=== PATIENT | female | born 1985 | race Caucasian/White ===

== ENCOUNTER → 2018-09-13 16:03 | Outpatient (CLI) | payer BC, SELFPAY ==
[2018-09-18 10:05] LABS: HPV Reflexed? NOT INDICATED
--- OUTSIDE RECORDS SUMMARY | 2018-11-08 22:23 | XMS RPT_ITS ---
:1985 Author Organization [facility] Care Team Providers Name Role Phone Heriberto Sanchez Attending Unavailable PROBLEMS PROBLEMS No Problem Records FoundPROCEDURES PROCEDURES No Procedure Records FoundRESULTS RESULTS PAP IG W/REFLEX HR Collected: 09/13/2018 Status: F Source: ROBERT HPV APTIMA 3:30 PM [facility] REPOSITORY Order Comment: CYTOLOGY INFORMATION: - CLINICAL INFORMATION: - DATE LMP/MENOPAUSE: 2014 IUD LMP - COLLECTION VIAL: Thin Prep Vial - NETWORK RELATIONS CONSULTANT SOURCE: CERVICAL/ENDOCERVICAL - COLLECTION TECHNIQUE: BRUSH/SPATULA Specimen Comment: [id number] Specimen Comment: Source.............Cervix;Endocervix Specimen Comment: Dates / Results....LMP:2014 Specimen Comment: Other..............IUD Specimen Comment: No. of containers..01 ThinPrep Vial TYPE CODE TESTS RESULT OUT OF RANGE REFERENCE UNITS LAB L7400.0800 . Normal DIAGN Comment Result Comment: NEGATIVE FOR INTRAEPITHELIAL LESION AND MALIGNANCY. LAB L7400.0900 . Normal ADEQ Comment Result Comment: Satisfactory for evaluation. No endocervical component is identified. LAB L7400.1400 . Normal PERFORM Comment Result Comment: Brianna Burks, Cracking Still Operator (ASCP) LAB L7400.2575 . Normal TEST METHOD Comment Result Comment: This liquid based ThinPrep(R) pap test was screened with the use of an image guided system. LAB L7400.2600 . Normal . COMM LAB L7400.2700 . Normal PAPSMR Comment Result Comment: The Pap smear is a screening test designed to aid in the detection of premalignant and malignant conditions of the uterine cervix. It is not a diagnostic procedure and should not be used as the sole means of detecting cervical cancer. Both false-positive and false-negative reports do occur. LAB L7400.2800 . Normal HPV RFLX Comment Result Comment: The HPV DNA reflex criteria were not met with this specimen result therefore, no HPV testing was performed. Performed at: [facility] [id number] Direct Care Professional: Daya Ro MD, Phone: [phone] Performed By: #### L7400.0357 #### [facility] (refer to report for specific site) refer to report for address and phone number ALLERGIES ALLERGIES DATE TYPE / CODE NAME / CODE REACTION SEVERITY SOURCE 02/07/2015 Drug No Known Unknown Robert [facility] Allergy/4160 Allergies/F00 [facility] [address](SNOMED [id number](RXNOR Repository CT) M) ENCOUNTERS ENCOUNTERS ADMIT/DISCHARGE ACCOUNT ADMITTING ENCOUNTER LOCATION SOURCE NUMBER CLASS 09/13/2018 [id number] Ambulatory Robert Robert [facility] ing:[facility] Repository PAYERS PAYERS ENCOUNTER GUARANTOR PAYER SUBSCRIBER SOURCE 09/13/2018 [id number] Primary [place] [address] Insurance:ANTHEMPolic CarterDOB: [facility] kamilah Soto Number: [id number] [address]Efx: [id number] Repository monalisa Date:[id number] () [address], [place] [address]JT: 09/13/2018 Secondary NOT GIVENUNK Tama Insurance:SELF PAY [facility] Number: Effective Repository Date:2018-09-13
== END ==
PROVIDERS: Visit Provider Obstetrics & Gynecology
DX: Z12.4 Encounter for screening for malignant neoplasm of cervix (principal)
CPT/HCPCS: 87624; 88175; G0145

== ENCOUNTER → 2021-06-17 14:55 | Outpatient (CLI) | payer MEDICAID, SELFPAY ==
[2021-06-23 17:52] LABS: HPV Reflexed? NOT INDICATED
== END ==
LOC: WOBLAB 14:57 → LABSPEC 14:57
PROVIDERS: Visit Provider Obstetrics & Gynecology
DX: Z12.4 Encounter for screening for malignant neoplasm of cervix (principal)
CPT/HCPCS: 88175; G0145

== ENCOUNTER → 2021-07-09 13:59 | Outpatient (CLI) | payer MEDICAID, SELFPAY ==
[2021-07-12 19:07] LABS: Chlamydia By Nucleic Acid AMP Negative (Negative)
[2021-07-12 21:40] LABS: Gonococcus By Nucleic Acid AMP Negative (Negative)
== END ==
PROVIDERS: Visit Provider Obstetrics & Gynecology
DX: Z11.3 Encounter for screening for infections with a predominantly sexual mode of transmission (principal)
CPT/HCPCS: 87491; 87591

== ENCOUNTER 2021-09-24 16:39 | Emergency (ER) | payer MEDICAID, SELFPAY ==
[2021-09-24 16:41] VITALS: BP 137/96; PULSE 80; RESP 16; TEMP 36.6; O2SAT 98; BMI 35.6
--- NOTE | 2021-09-24 16:53 | CT_ITS ---
EXAM: CT HEAD WITHOUT INTRAVENOUS CONTRAST : 1985 CLINICAL INDICATION: vertigo TECHNIQUE: Multiple axial images were obtained of the head without intravenous contrast. This CT exam was performed using one or more of the following dose reduction techniques: automated exposure control, adjustment of the mA and/or kV according to patient size, and/or use of iterative reconstruction technique. This report was created using CNZZ report generation technology. COMPARISON: None. FINDINGS: BRAIN AND EXTRA-AXIAL SPACES: Unremarkable. No intra- or extra-axial hemorrhage. No evidence of acute infarct. No intracranial mass or mass effect. There is preservation of the beach/white matter interface. Posterior fossa structures are unremarkable. Ventricles are appropriate for age. No hydrocephalus. Basal cisterns are patent. BONES/JOINTS: Unremarkable. No discrete lytic or blastic abnormalities. SINUSES: Unremarkable as visualized. Clear. MASTOID AIR CELLS: Unremarkable. Clear. ORBITS: Visualized globes, extraocular muscles, optic nerves and retrobulbar fat appear unremarkable. CT/Brain/Head without Contrast IMPRESSION: Negative head/brain CT without intravenous contrast. Individualized dose optimization techniques were used for this CT. at 1820 Reported and signed by: Yuan Barney MD Electronically Signed: Yuan Barney MD at 18:19 EST Tel , Service support ,
--- NOTE | 2021-09-24 16:55 | EDS_ITS ---
HPI History of Present Illness Chief Complaint: Dizziness Detail of Chief Complaint: Dizziness that started 1 week ago Informant: patient Narrative Narrative: Patient presents to the emergency department complaint of dizziness that started a week ago. Patient states that when she lays flat or closes her eyes she feels like her eyes do not stop moving. She feels off balance. She feels nauseated. Patient was seen in urgent care yesterday and diagnosed with vertigo and was started on meclizine. Patient states that when she takes the meclizine it almost makes her feel worse. She denies any falls or head injuries. She has had intermittent headaches over the last week. She denies fever or recent illness. She had a negative Covid test yesterday and has been vaccinated against COVID-19. Patient denies any ear pain. Prior similar symptoms: No PFSH PFSH Home Medications lorazepam [Ativan] 1 mg PO TID PRN #10 tab 09/24/21 [Rx Last Taken Unknown] meclizine 25 mg PO TID PRN 09/24/21 [History Last Taken Unknown] ondansetron 4 mg PO Q8H PRN PRN #10 tab 09/24/21 [Rx Last Taken Unknown] sertraline 50 mg PO DAILY 09/24/21 [History Last Taken Unknown] Allergy/AdvReac Type Severity Reaction Status Date / Time No Known Allergies Allergy Verified 02/07/15 04:50 Surgical History (Updated 09/24/21 @ 17:07 by Chely Harrison) History of Social History Smoking Status: Never smoker ROS ROS ED ROS Narrative Dizziness Constitutional Constitutional ED: Reports systems reviewed and no addt'l complaints, except as documented; Denies body ache(s), change in weight or chills Eyes Eyes: Denies acute decrease in peripheral vision, change in vision, double vision or loss of vision ENT ENT ED: Reports none; Denies ear pain, lip swelling, loss taste/smell, neck pain, otalgia or sore throat Cardiovascular Cardiovascular: Reports none; Denies abdominal pain, chest pain with activity, leg edema, lightheadedness, palpitations, rapid heart rate or syncope Respiratory/Chest Respiratory/Chest: Reports none; Denies change in mental status, dry cough, dyspnea, hemoptysis, shortness of breath at rest or shortness of breath with exertion Gastrointestinal Gastrointestinal: Reports none and nausea; Denies abdominal pain, change in stool character, diarrhea, hematemesis, hematochezia, melena, rectal bleeding or vomiting Genitourinary Genitourinary ED: Reports none; Denies abdominal discomfort, anuria, dysuria, genital pain or polyuria Musculoskeletal Musculoskeletal: Reports none; Denies arthralgias, back pain, difficulty walking, extremity pain, muscle weakness or myalgias Integumentary Reports none; Denies abscess or rash Neurologic Neurologic: Reports none and headache(s); Denies abnormal gait, confusion, focal weakness, frequent falls, loss of vision, numbness, paresthesias, radicular pain, vertigo or weakness Psychiatric Psychiatric: Reports systems reviewed and no addt'l complaints, except as documented and none; Denies behavioral changes, confusion, difficulty concentrating, hallucinations, suicidal ideation, tactile hallucinations or vi sual hallucinations Endocrine Endocrinology: Denies none, cold intolerance, excessive sweating, fatigue or heat intolerance Hematologic/Lymphatic Hematologic/Lymphatic: Reports none; Denies anemia, easy bleeding or easy bruising Allergic/Immunologic Allergic/Immunologic ED: Denies as per HPI, none, lip swelling, mouth swelling, throat swelling, tongue swelling or hives EXAM Physical Exam Const Vital Signs: 09/24/21 16:41 09/24/21 17:05 Temperature 97.8 F Temperature Source Temporal Pulse Rate 80 Respiratory Rate 16 Respiratory Effort Normal Non-Labored Respiratory Pattern Normal Blood Pressure 137/96 H Blood Pressure Mean 109 Pulse Ox 98 Oxygen Delivery Method Room Air Positive well nourished and well developed General Appearance ED: well developed and NAD HEENT Reports TM's clear and moist mucous membranes normocephalic and atraumatic; Negative for trauma or tenderness Tympanic Membrane ED: Yes TM's clear Eyes PERRL and EOMs intact bilaterally General Eye ED: Negative for pale conjunctiva or scleral icterus Neck no lymphadenopathy, supple and no JVD General: Negative for tenderness Chest Wall inspection of chest normal and palpation of chest normal Chest: Negative for tenderness Resp normal respiratory effort and clear to auscultation bilaterally Effort and Inspection: Negative for respiratory distress or pain with movement Auscultation: Negative for rhonchi, wheezes or diminished lung sounds Cardio regular rate, regular rhythm, S1 normal heart sound, S2 normal heart sound and no murmurs Peripheral Pulses: pulses 2+ throughout GI normal to inspection, nondistended, normoactive bowel sounds, soft to palpation, non-tender, non-distended and no masses Back/Spine no CVA tenderness and no thoracic nor lumbar tenderness Extremity normal to inspection General Extremety ED: Negative for edema General Extremity: Negative for edema Neuro oriented x3, CN's II-XII intact bilaterally, no sensory deficits noted and gait normal Neuro Narrative: Finger-nose and heel skelton testing within normal limits, negative Romberg, negative for drift. Hallpike maneuver performed did not reveal any nystagmus. Patient did feel symptomatic with laying flat with head position to both sides. Sensorium / Orientation: awake, alert, oriented to person, oriented to place and oriented to time Motor Exam: strength 5/5 throughout and strength abnormal Psych mental status grossly normal Skin no rashes or lesions noted and no wounds MDM MDM MDM Narrative Medical decision making narrative: IV line established on arrival. Patient was medicated with Ativan 1 mg IV as well as Zofran 4 mg IV. Symptoms did seem to improve. At this point etiology of patient's dizziness is unclear although I suspect benign vertigo given the fact that symptoms are positional. Patient also has history of migraines. There is no family history of brain tumors or aneurysms. Patient's friend also asked that this could be anxiety as patient had some panic attacks about a year ago that appeared to her to be similar however the patient states this is different. Patient will be given referral to primary care physician as well as ENT for follow-up. Lab Data Attestation: I reviewed the patient's lab results. Labs: Laboratory Results - last 24 hr 09/24/21 09/24/21 09/24/21 17:00 17:00 17:00 WBC 8.3 RBC 4.61 Hgb 14.9 Hct 44.0 MCV 95.4 MCH 32.3 H MCHC 33.9 RDW Std Deviation 42.7 RDW Coeff of Gabriel 12.3 Plt Count 234 MPV 9.7 Immature Gran % (Auto) 0.200 Neut % (Auto) 65.2 Lymph % (Auto) 28.4 Lane % (Auto) 5.3 Eos % (Auto) 0.7 Baso % (Auto) 0.2 Absolute Neuts (auto) 5.4 Absolute Lymphs (auto) 2.36 Nucleated RBC % 0 Sodium 141 Potassium 3.3 L Chloride 105 Carbon Dioxide 28.0 Anion Gap 8 BUN 14 Creatinine 1.11 H Estim Creat Clear Calc 62.44 Est GFR (MDRD) Af Amer 71 Est GFR (MDRD) Non-Af 59 L BUN/Creatinine Ratio 12.6 Glucose 142 H Calcium 8.9 Serum , Qual NEGATIVE Radiography Diagnostic Testing: Clinical Impression(s) from Imaging Studies Brain CT 09/24/21 16:53 IMPRESSION: Negative head/brain CT without intravenous contrast. Individualized dose optimization techniques were used for this CT. at 1820 Reported and signed by: Yuan Barney MD Electronically Signed: Yuan Barney MD at 18:19 EST Tel , Service support , Discharge Plan Triage Chief Complaint: Dizziness ED Provider: Epifanio Hendrickson Dx/Rx/DC Orders Instructions: ED BPV Vertigo, ED Vertigo, Unspecified Prescriptions: New ondansetron [ondansetron] 4 MG tablet 4 mg PO Q8H PRN PRN (Reason: Nausea) Qty: 10 RF: 0 lorazepam [Ativan] 1 mg tablet 1 mg PO TID PRN (Reason: vertigo) Qty: 10 RF: 0 No Action meclizine 25 mg tablet 25 mg PO TID PRN (Reason: Dizziness) RF: 0 sertraline 50 mg tablet 50 mg PO DAILY RF: 0 Primary Care Provider: Care Physician,No Primary Referrals: Arie Magana MD [STAFF PHYSICIAN] - 3-5 Days Neto Mcintyre MD [NON-STAFF] - 3-5 Days Care Physician,No Primary [Primary Care Provider] - Disposition Disposition: Home, Self Care
[2021-09-24 17:25] LABS: Absolute Lymphocyte Count 2.36 X10^3/uL (0.83-4.51); Absolute Neutrophil Count 5.4 X10^3/uL (2.0-7.7); Basophil# 0.02 X10^3/uL; Basophil% 0.2 % (0-1); Eosinophil# 0.06 X10^3/uL; Eosinophils% 0.7 % (0-5); Hemoglobin 14.9 g/dL (12.0-15.0); Lymphocyte # 2.36 X10^3/ul (0.83-4.51); Lymphocyte % 28.4 % (19-41); Mean Corp Hgb Conc 33.9 g/dL (32-36); Mean Corpuscular Hgb 32.3 pg (27.0-32.0); Mean Corpuscular Volume 95.4 fL (81-99); Mean Platelet Vol. 9.7 fl (6.2-12.0); Monocyte# 0.44 X10^3/uL; Monocyte% 5.3 % (0-10); NRBC Flagged by Analyzer 0 % (0-5); Neutrophil # 5.41 X10^3/uL (2.7-7.7); Neutrophil % 65.2 % (47-70); Platelet Count 234 K/mm3 (150-450); RBC Distribution Width CV 12.3 % (11.6-14.6); RBC Distribution Width SD 42.7 fl (35.1-43.9); Red Blood Count 4.61 M/mm3 (4.2-5.4); White Blood Count 8.3 K/mm3 (4.4-11.0)
[2021-09-24] MEDS: Ondansetron 4 MG/2 ML Vial IV (17:25)
[2021-09-24] MEDS: LORazepam 2 MG/ML Syringe 1 MG IV (17:25)
[2021-09-24] MEDS: 0.9% Normal Saline 1,000 ML 150 ML IV (17:25)
[2021-09-24 17:44] LABS: Internal QC Validated? YES +Cl - CLEAR BKGD; Pregnancy, Serum, hCG Quali. NEGATIVE Negative
[2021-09-24 17:53] LABS: Anion Gap 8 (5-15); BUN 14 mg/dL (7-18); BUN/Creat Ratio 12.6 RATIO (10-20); Calcium,Total 8.9 mg/dL (8.5-10.1); Chloride 105 mmol/L (98-107); Creatinine, Serum 1.11 mg/dL (0.55-1.02); EST Glomerular Filtration Rate 59 mL/min (>60); Est Glom Filt Rate - Afr Amer 71 mL/min (>60); Estimated Creatinine Clearance 62.44 ml/min; Glucose 142 mg/dL (74-106); Potassium 3.3 mmol/L (3.5-5.1); Sodium Level 141 mmol/L (136-145)
[2021-09-24 19:02] VITALS: BP 113/79; PULSE 89; RESP 17
== END 2021-09-24 19:07 | disposition home or self-care (01) ==
PROVIDERS: Emergency Provider Emergency Medicine
DX: R42 Dizziness and giddiness (principal); R11.0 Nausea; Z79.899 Other long term (current) drug therapy
CPT/HCPCS: 70450; 80048; 84703; 85025; 96361; 96374; 96375; 99283; J7030; A4216; J2405